=== PATIENT | male | born 1960 ===

== ENCOUNTER → 2023-03-28 | Outpatient (CLI) | payer OTHER ==
[~2023-03-28] VITALS: Ht 175.3 cm; Wt 87.2 kg
[2023-03-28 08:28] VITALS: BP 140/79
== END | disposition home or self-care (01) ==
LOC: SRCNTR 08:15
PROVIDERS: ATTEND Internal Medicine
DX: J45.909 Unspecified asthma, uncomplicated (principal); I10 Essential (primary) hypertension; M06.9 Rheumatoid arthritis, unspecified
CPT/HCPCS: G0463; Z7500

== ENCOUNTER → 2023-10-10 | Outpatient (CLI) | payer OTHER ==
[~2023-10-10] VITALS: Ht 175.3 cm; Wt 192.0 kg
[2023-10-10 09:10] VITALS: BP 156/90; PULSE 86; RESP 17; TEMP 98.1; O2SAT 96
== END | disposition home or self-care (01) ==
LOC: SRCNTR 08:51
PROVIDERS: ATTEND Internal Medicine
DX: J45.909 Unspecified asthma, uncomplicated (principal); I10 Essential (primary) hypertension; Z22.7 Latent tuberculosis
CPT/HCPCS: G0463; Z7500

== ENCOUNTER → 2024-02-26 | Outpatient (CLI) | payer OTHER ==
[~2024-02-26] VITALS: Ht 175.3 cm; Wt 192.0 kg
[2024-02-26 08:45] VITALS: BP 136/86; PULSE 77; RESP 18; TEMP 97.9; O2SAT 98
== END | disposition home or self-care (01) ==
LOC: SRCNTR 08:25
PROVIDERS: ATTEND Internal Medicine
DX: J45.998 Other asthma (principal); R91.1 Solitary pulmonary nodule; J18.9 Pneumonia, unspecified organism; I10 Essential (primary) hypertension; M19.90 Unspecified osteoarthritis, unspecified site; Z79.899 Other long term (current) drug therapy; Z88.8 Allergy status to other drugs, medicaments and biological substances
CPT/HCPCS: G0463